=== PATIENT | male | born 1995 | race Two or more races ===

== ENCOUNTER 2024-12-19 19:26 | Emergency (ER) | payer OTHER ==
[~2024-12-19] VITALS: Ht 149.9 cm; Wt 49.9 kg
[2024-12-19 19:44] VITALS: TEMP 99.1
[2024-12-19 21:06] VITALS: BP 125/78; O2SAT 98
== END 2024-12-19 21:04 ==
LOC: ER 19:32
DX: S00.83XA Contusion of other part of head, initial encounter (principal); F10.129 Alcohol abuse with intoxication, unspecified; E11.9 Type 2 diabetes mellitus without complications; F17.200 Nicotine dependence, unspecified, uncomplicated; V49.20XA Unspecified car occupant injured in collision with unspecified motor vehicles in nontraffic accident, initial encounter; Y93.89 Activity, other specified; Y92.488 Other paved roadways as the place of occurrence of the external cause; Y99.8 Other external cause status; Y90.9 Presence of alcohol in blood, level not specified
CPT/HCPCS: 70450-TC; 70486-TC; 71045-TC; 72125-TC; 72170-TC; 73030-TC